=== PATIENT | female | born 1950 | race Caucasian/White ===

== ENCOUNTER → 2017-02-15 | Outpatient (CLI) | payer OTHER ==
[~2017-02-15] MED LIST: ALTACE; ALTACE PO; ASPERDRINK81 MG PO; ASPIRIN; ASPIRIN PO; ASPIRIN81 MG; CELEXA PO; CELEXA10 MG; CELEXA20 MG PO; GLUCOPHAGE XR500 MG; GLUCOPHAGE XR500 MG PO; GLUCOPHAGE500 MG; GLUCOTROL; GLUCOTROL PO; GLUCOTROL XL PO; HCTZ; HCTZ PO; HUMALOG100 U/M1; IBUPROFEN; IBUPROFEN PO; JANUVIA PO; JANUVIA100 MG; JANUVIA50 MG PO; LANTUS100 U/ML; LANTUS100 U/ML SUBQ; LASIX; LASIX PO; LEVOTHYROXINE75 MCG; LEXAPRO; LISINOPRIL10 MG; METFORMIN PO; NEXIUM; NEXIUM PO; NITROGYLCERIN SUBLINGUAL; PLAVIX PO; POLYTRIM EYE DR10 ML OP; PRAVACHOL; PRAVASTATIN SOD40 MG PO; PRISTIQ PO; SYNTHROID; SYNTHROID PO; SYNTHROID0.05 MG PO; TOPROL XL; TOPROL XL PO; VITAMIN B122500 MCG; VITAMIN D31 GM; ZETIA PO; ZOCOR; ZOCOR PO
--- NOTE | ~2017-02-15 | MY11 ---
[facility] A Service of [facility] RADIOLOGY TEXT RESULTS PATIENT: ANDREW RICHARDSON LOCATION: [facility] : 54 UNIT #: [id number] AGE: [address]: GRISEL PRABHAKAR APRN SEX: F ORDER DR: [id number] [place] [id number] O MR#: [id number] Acc #: [id number] NAME: ANDREW RICHARDSON. : 1950 SEX: F STUDY DATE/TIME: 02/15/2017 10:10 UNIT: [facility] ROOM: STUDY DESCRIPTION: MY Mammogram Screening Dig Kendrick Attending Physician: Grisel Prabhakar Aprn Referring Physician: Grisel Prabhakar Aprn Ordering Physician: Grisel Prabhakar Aprn Primary Care Physician: Carlota Acosta M.D. MEDICAL IMAGING REPORT This report is preliminary unless electronic signature is present. EXAM Screening mammogram, 02/15 INDICATION 66-year-old with no personal or family history of breast cancer. No current complaints. FINDINGS Routine digital screening views of both breasts were obtained. Study is reviewed with an FDA-approved CAD device. Comparison made with 10/11/2015, 01/02/2014. Breast parenchyma is fatty replaced. There are no new masses or suspicious microcalcifications. Benign calcifications in both breasts are stable. IMPRESSION Benign mammogram. Routine screen in 1 year recommended. Patients over the age of 40 are entered into a reminder system with target due date for the next mammogram. A result letter will also be sent to the patient. BIRADS: 2 Benign finding. Dictated by... Tyson Weaver Jr., M.D. THIS IS AN ELECTRONICALLY VERIFIED REPORT Tyson Weaver Jr., M.D. at 02/15/2017 4:48 PM [facility] A Service of [facility] RADIOLOGY TEXT RESULTS PATIENT: ANDREW RICHARDSON LOCATION: [facility] : 54 UNIT #: [id number] AGE: [address]: GRISEL PRABHAKAR APRN SEX: F ORDER DR: Hosea TD: 02/15/2017 12:49 JOB #: [id number] MEDICAL IMAGING REPORT Page 1 of 1
== END | disposition home or self-care (01) ==
LOC: SMAM 09:40
DX: Z12.31 Encounter for screening mammogram for malignant neoplasm of breast (principal)
CPT/HCPCS: G0202